=== PATIENT | male | born 1945 | race Caucasian/White ===

== ENCOUNTER 2018-07-31 12:47 | Emergency (ER) | payer MEDICARE, OTHER ==
[2018-07-31] MEDS: SODIUM CHLORIDE 0.9% FLUSH 10 ML SOL IV PRN ×4 (12:50→12:59)
[2018-07-31] MEDS: EPINEPHRINE HCL 0.1 MG/ML SOL IV PRN ×3 (12:50→12:59)
[2018-07-31] MEDS ORDERED: CALCIUM CHLORIDE 100 MG/ML SOL IV ONE ×4 (12:52→13:26)
[2018-07-31] MEDS ORDERED: EPINEPHRINE 1:1000 AMP 1 MG/ML SOL ONE (13:20)
[2018-07-31] MEDS ORDERED: SODIUM BICARBONATE 8.4%(ADULT) 1 MEQ/ML SOL IV ONE ×2 (13:20→13:24)
[2018-07-31 13:28] LABS: ALBUMIN 2.9 gm/dl (3.4-5.0); BILIRUBIN,TOTAL 0.2 mg/dl (0.2-1.0); CALCIUM 10.8 mg/dl (8.5-10.1); CARBON DIOXIDE 24.8 mEq/L (21-32); CREATININE 1.39 mg/dl (0.80-1.30); POTASSIUM 2.9 mMol/L (3.5-5.1); TOTAL PROTEIN 7.2 gm/dl (6.4-8.2)
[2018-07-31 13:30] LABS: HEMATOCRIT 44 % (39-53); HEMOGLOBIN 13.5 gm/dl (13.5-17.7); MEAN CORPUSCULAR HEMOGLOBIN 27.5 pg (27.0-32.0); MEAN CORPUSCULAR HGB CONC 30.8 gm/dl (32.0-36.0); MEAN CORPUSCULAR VOLUME 89 fL (80-100)
[2018-07-31] MEDS ORDERED: SODIUM CHLORIDE 0.9% 1000ML 1,000 ML IV SCH (13:30)
[2018-07-31 13:31] LABS: ANISOCYTOSIS SLIGHT AMT; BAND NEUTROPHILS % (MANUAL) 4 %; BASOPHILS % (MANUAL) 1 % (0-3); EOSINOPHILS % (MANUAL) 4 % (0-9); LYMPHOCYTES % (MANUAL) 52 % (10-50); MONOCYTES % (MANUAL) 7 % (0-12); NEUTROPHILS % (MANUAL) 32 % (37-80)
[2018-07-31 14:22] VITALS: TEMP 95.3
== END 2018-07-31 19:52 | disposition expired | DRG 951 ==
LOC: ED 12:47
CPT/HCPCS: 36415; 80053; 85007; 85027; 92950; 96374; 96375; 99291; J3490